=== PATIENT | female | born 1975 | race Caucasian/White ===

== ENCOUNTER 2016-11-24 06:41 | Emergency (ER) | payer OTHER ==
[2016-11-24 06:53] VITALS: PULSE 70; O2SAT 100
[2016-11-24] MEDS ORDERED: TETRACAINE 0.5% STERI-UNIT SOL OP STA (07:20)
[2016-11-24] MEDS ORDERED: Lactated Ringers 1,000 ML IV SCH (07:30)
[2016-11-24] MEDS ORDERED: TETRACAINE 0.5% STERI-UNIT SOL OP ONE (07:33)
--- NOTE | 2016-11-24 07:33 | ERPHSYRPT ---
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 Pt was emptying SAMINA drain when fluids from drain splashed onto pts face and possibly into pts eyes. Pt sts that she was unsure if fluids in drain went into eyes or not, but that her eyes felt different after incident. Pt sts she immediately washed face and rinsed eyes after incident. Triage Nursing Assessment: Pt alert, oriented, answers all questions appropriately. Skin p/w/d, resps non-labored. Pt ambulatory to tx room, steady gait noted. 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 She was emptying a patient SAMINA drain and dumping it in the toilet. There was a splash from the fluid going into the toilet water. The splash might have gone in left eye. Pt wears contact lenses. She used 3 saline flushes to flush left eye and took out contacts. Put contacts back in. This occurred around 5:30 AM today. She takes xarelto for prior DVT. She reports up to date tetanus vaccine. She had prior hep b immunizations. States not . Timing/Duration: today (5:30AM) Severity: mild Immunizations Up to Date: Yes - Review of Systems Eyes: No Vision Changes - Past Medical History Pertinent Past Medical History: Yes Other Medical History: DVT, PE - Past Surgical History Past Surgical History: Yes Other Surgical History: , THROMBOLYSIS - Social History Smoking Status: Never smoker Drug Use: none Patient Lives Alone: No - Female History Hx Last Menstrual Period: 1.5 weeks ago - Nursing Vital Signs Nursing Vital Signs: Initial Vital Signs Temperature 98.1 F Temperature Source Oral Pulse Rate 70 Respiratory Rate 16 Blood Pressure [Right Arm] 144/86 Pain Intensity 0 - Physical Exam General Appearance: alert Eye Exam: PERRL/EOMI, eyes nml inspection, other (no redness or drng) Ears, Nose, Throat Exam: moist mucous membranes Respiratory Exam: lungs clear Neurologic Exam: alert, oriented x 3, cooperative Skin Exam: warm, dry SpO2: 100 Oxygen Delivery: Room Air - Course Nursing assessment & vital signs reviewed: Yes Ordered Tests: Active Orders 24 hr Category Date Time Status Visual Acuity STAT Care 11/24/16 07:20 Active Medication Summary Discontinued Medications Generic Name Dose Route Start Last Admin Trade Name Freq PRN Reason Stop Dose Admin Lactated Ringer's 1,000 mls @ 100 mls/hr 11/24/16 07:30 Lactated Ringers IV 12/24/16 07:29 .Q10H SHAHRAM Tetracaine HCl 4 ml 11/24/16 07:20 11/24/16 07:39 Tetracaine 0.5% Steri-Unit Stacia OP 11/24/16 07:21 4 ml STAT STA Administration Tetracaine HCl Confirm 11/24/16 07:33 Tetracaine 0.5% Steri-Unit Stacia Administered 11/24/16 07:34 Dose 4 ml OP .STK-MED ONE - Progress Progress Note: 11/24/16 07:31 Advised flush eye further. Advised not to use the possibly contaminated contact lens. Low risk exposure so PEP meds not indicated and she agrees. Source pt will be tested. She will followup employee health. 11/24/16 08:26 Source patient rapid HIV negative. Counseled pt/family regarding: diagnosis, need for follow-up - Departure Time of Disposition: 08:26 Departure Disposition: Home Clinical Impression: Employee exposure to body fluids Condition: Stable Critical Care Time: No Referrals: BENJAMIN SAHA [Nurse Practioner] - Instructions: Handle Body Fluid Exposure -- Healthcare Worker Additional Instructions: Follow up with employee health.
[2016-11-24 08:34] VITALS: BP 147/79
[2016-11-25 04:36] LABS: Hepatits C Antibody by EIA Non-Reactive (Non-Reactive)
[2016-11-25 15:32] LABS: Hepatits B Sur Ag Screen Non-Reactive (Non-Reactive)
== END 2016-11-24 08:32 | disposition home or self-care (01) ==
LOC: ER - EH 06:41
DX: Z77.21 Contact with and (suspected) exposure to potentially hazardous body fluids (principal); T15.92XA Foreign body on external eye, part unspecified, left eye, initial encounter; T15.91XA Foreign body on external eye, part unspecified, right eye, initial encounter; Y93.F9 Activity, other caregiving; Y92.238 Other place in hospital as the place of occurrence of the external cause; Y99.0 Civilian activity done for income or pay
CPT/HCPCS: 36415; 86317; 86701; 86702; 86803; 87340; 87389; 99282